=== PATIENT | male | born 1950 | race Hispanic/Latino ===

== ENCOUNTER 2016-07-23 10:16 | Outpatient (CLI) | payer MEDICARE, OTHER ==
[2016-07-23 10:57] LABS: #Eosinphils 0.3 thou/uL (0.0-0.7); #Lymphocytes 1.9 thou/uL (1.20-3.40); #Monocytes 0.6 thou/uL (0.11-0.59); #Neutrophils 4.7 thou/uL (1.40-6.50); %Basophils 0.6 % (0.0-1.0); %Eosinophils 3.6 % (0.0-10.0); %Monocytes 8.1 % (0.0-10.0); Hematocrit 36.6 % (42.0-52.0); Mean Platelet Volume 6.4 fL (7.4-10.4); Red Blood Cell (RBC) Count 4.14 mill/uL (4.70-6.10); White Blood Cell (WBC) Count 7.5 thou/uL (4.8-10.8)
[2016-07-23 11:10] LABS: ALT (SGPT) 35 U/L (0-55); AST (SGOT) 30 U/L (5-34); Alkaline Phosphatase 95 U/L (40-150); Anion Gap 15 mmol/L (10-20); BUN (Urea Nitrogen) 23 mg/dL (8.4-25.7); Bilirubin, Total 0.9 mg/dL (0.2-1.2); Calc. Creatinine Clearance 0 mL/min (70-130); Calcium 9.6 mg/dL (7.8-10.44); Carbon Dioxide 23 mmol/L (23-31); Chloride 106 mmol/L (98-107); Estimated GFR-MDRD 66; Globulin 4.2 g/dL (2.4-3.5); LDL Cholesterol, Calculated 88 mg/dL; Protein, Total 8.3 g/dL (5.8-8.1)
[2016-07-23 19:01] LABS: Microalbumin Urine 10.6 mg/dL (0.5-50.0)
== END 2016-07-23 10:17 | disposition home or self-care (01) ==
LOC: HPCALD 10:16
PROVIDERS: ATTEND Family Medicine
DX: E78.00 Pure hypercholesterolemia, unspecified (principal); E11.9 Type 2 diabetes mellitus without complications
CPT/HCPCS: 36415; 80053; 80061; 82043; 84443; 85025

== ENCOUNTER 2016-10-28 15:15 | Outpatient (CLI) | payer MEDICARE, OTHER ==
--- NOTE | 2016-10-28 20:59 | RAD ---
CHEST TWO VIEWS: Date: 10-28-16 Comparison: 05-21-13 FINDINGS: The heart is upper limits of normal in size but unchanged over the interval. There is no vascular co ngestion or evidence of significant pleural effusion. The right lung is clear. There is some questio nable haziness in the left costophrenic angle, but I believe this is due to overlapping structures. This was also the asymmetric side. Some calcified granulomas are suggested throughout the lungs. Mil d degenerative changes are seen in the mid to lower thoracic spine. The trachea is midline. IMPRESSION: No definite acute finding. POS: HOME
== END 2016-10-28 15:16 | disposition home or self-care (01) ==
LOC: BUREKG 15:15
PROVIDERS: ATTEND Family Medicine
DX: M54.6 Pain in thoracic spine (principal)
CPT/HCPCS: 71020; 93005; 93010

== ENCOUNTER 2016-11-03 14:13 | Emergency (ER) | payer MEDICARE, OTHER ==
[2016-11-03] MEDS ORDERED: Ibuprofen 800 MG TAB ONE (14:30)
[2016-11-03] MEDS ORDERED: HYDROcodone/Acetaminophen 10/325 mg Tablet ONE (14:30)
--- NOTE | 2016-11-03 15:43 | CT ---
CT CERVICAL SPINE WITHOUT CONTRAST: Date: 11/03/[address] of the cervical spine was done emergently for evaluation of neck and shoulder pain. Axial slices were acquired, then coronal and sagittal reconstructions were done. FINDINGS: The spinal alignment is grossly normal. Slight disc space narrowing is seen at C5-C6 and C6-C7. The C1 to dens distance is normal and the soft tissues are normal in thickness. No fracture or acute bon y changes was seen at any level. Findings by level follow: C1-C2: No acute findings. C2-C3: No acute findings. C3-C4: Moderate right foraminal narrowing and moderate to severe left foraminal narrowing. Facet arthritis prominent on the left. C4-C5: Moderate bilateral foraminal narrowing and some mild facet arthritis bilaterally. C5-C6: Prominent disc osteophyte complex posteriorly that narrows the AP diameter of the spinal canal to 8- 9 mm. Additionally, there is moderate to severe bilateral foraminal narrowing, perhaps a little more so on the right than the left. C6-C7: There is probably some mild to moderate right foraminal narrowing and minimal left foraminal narrowi ng. The angulation of the scan makes it a little more difficult to see here. C7-T1: Facet arthritis is present. There is no spinal stenosis. The foramina are difficult to evaluate prop erly. The lung apices were clear. The soft tissues of the neck were unremarkable. IMPRESSION: Diffuse degenerative changes throughout with bilateral foraminal narrowing being prominent at C3 and below. Central canal stenosis is present at C5-C6 due to a disc osteophyte complex with an AP diame ter narrowed to about 8-9 mm. POS: HOME
== END 2016-11-03 15:15 | disposition home or self-care (01) ==
LOC: BURERS 14:13
DX: M50.322 Other cervical disc degeneration at C5-C6 level (principal); M50.323 Other cervical disc degeneration at C6-C7 level; E11.9 Type 2 diabetes mellitus without complications; Z79.84 Long term (current) use of oral hypoglycemic drugs; Z79.899 Other long term (current) drug therapy
CPT/HCPCS: 72125

== ENCOUNTER 2016-11-11 16:33 | Outpatient (CLI) | payer MEDICARE, OTHER ==
[2016-11-11 17:14] LABS: Anion Gap 21 mmol/L (10-20); BUN (Urea Nitrogen) 37 mg/dL (8.4-25.7); Calc. Creatinine Clearance 0 mL/min (70-130); Calcium 9.8 mg/dL (7.8-10.44); Carbon Dioxide 21 mmol/L (23-31); Chloride 96 mmol/L (98-107); Estimated GFR-MDRD 31; Glucose 210 mg/dL (80-115); Potassium 4.5 mmol/L (3.5-5.1); Sodium 133 mmol/L (136-145); Uric Acid 6.9 mg/dL (3.5-7.2)
== END 2016-11-11 16:34 | disposition home or self-care (01) ==
LOC: HPCALD 16:33
PROVIDERS: ATTEND Family Medicine
DX: N17.9 Acute kidney failure, unspecified (principal); M25.40 Effusion, unspecified joint
CPT/HCPCS: 36415; 80048; 84550

== ENCOUNTER 2016-11-13 12:39 | Outpatient (CLI) | payer MEDICARE, OTHER ==
[2016-11-13 17:49] LABS: CRP (Inflammatory) 25.73 mg/dL (= or < 0.5)
[2016-11-13 17:59] LABS: Creatinine, Urine 137.56 mg/dL (63-166)
[2016-11-13 18:15] LABS: Microalbumin Urine 47.8 mg/dL (0.5-50.0); Microalbumin/Creat Ratio 347.5 mg/g (Less than 30)
[2016-11-15 07:28] LABS: Antinuclear AB Negative (Negative)
== END 2016-11-13 12:40 | disposition home or self-care (01) ==
LOC: BURLAB 12:39
PROVIDERS: ATTEND Family Medicine
DX: D64.9 Anemia, unspecified (principal); N17.9 Acute kidney failure, unspecified; M25.50 Pain in unspecified joint
CPT/HCPCS: 36415; 82043; 82550; 83540; 83550; 84165; 84166; 85652; 86038; 86140; 86430

== ENCOUNTER 2016-11-18 17:15 | Outpatient (CLI) | payer MEDICARE, OTHER ==
[2016-11-18 18:26] LABS: Anion Gap 18 mmol/L (10-20); BUN (Urea Nitrogen) 30 mg/dL (8.4-25.7); Calc. Creatinine Clearance 0 mL/min (70-130); Calcium 8.8 mg/dL (7.8-10.44); Carbon Dioxide 21 mmol/L (23-31); Chloride 100 mmol/L (98-107); Estimated GFR-MDRD 71; Glucose 365 mg/dL (80-115); Potassium 5.2 mmol/L (3.5-5.1); Sodium 134 mmol/L (136-145)
== END 2016-11-18 17:16 | disposition home or self-care (01) ==
LOC: HPCALD 17:15
PROVIDERS: ATTEND Family Medicine
DX: N17.9 Acute kidney failure, unspecified (principal)
CPT/HCPCS: 36415; 80048

== ENCOUNTER 2016-11-27 09:46 | Outpatient (CLI) | payer MEDICARE, OTHER ==
[2016-11-27 10:12] LABS: Anion Gap 15 mmol/L (10-20); BUN (Urea Nitrogen) 18 mg/dL (8.4-25.7); Calc. Creatinine Clearance 0 mL/min (70-130); Calcium 9.7 mg/dL (7.8-10.44); Carbon Dioxide 25 mmol/L (23-31); Chloride 104 mmol/L (98-107); Estimated GFR-MDRD 82; Glucose 101 mg/dL (80-115); Sodium 140 mmol/L (136-145)
== END 2016-11-27 09:47 | disposition home or self-care (01) ==
LOC: HPCALD 09:46
PROVIDERS: ATTEND Family Medicine
DX: N17.9 Acute kidney failure, unspecified (principal)
CPT/HCPCS: 36415; 80048

== ENCOUNTER 2016-12-16 10:04 | Outpatient (CLI) | payer MEDICARE, OTHER ==
[2016-12-16 10:48] LABS: #Basophils 0.1 thou/uL (0.0-0.2); #Eosinphils 0.1 thou/uL (0.0-0.7); #Monocytes 0.5 thou/uL (0.11-0.59); #Neutrophils 6.1 thou/uL (1.40-6.50); %Basophils 1.2 % (0.0-1.0); %Eosinophils 0.9 % (0.0-10.0); %Lymphocytes 30.4 % (21.0-51.0); %Monocytes 5.4 % (0.0-10.0); %Neutrophils 62.1 % (42.0-75.0); Hemoglobin 11.4 g/dL (14.0-18.0); Mean Corpuscular HGB CONC 34.6 g/dL (32.0-36.0); Mean Corpuscular Volume 89.6 fl (80.0-94.0); Mean Platelet Volume 5.8 fL (7.4-10.4); Platelet Count 349 thou/uL (130-400); RBC Distribution Width 14.3 % (11.5-14.5); Red Blood Cell (RBC) Count 3.67 mill/uL (4.70-6.10); White Blood Cell (WBC) Count 9.8 thou/uL (4.8-10.8)
== END 2016-12-16 10:05 | disposition home or self-care (01) ==
LOC: BURLAB 10:04
PROVIDERS: ATTEND Internal Medicine Rheumatology
DX: M35.3 Polymyalgia rheumatica (principal)
CPT/HCPCS: 36415; 85025; 85652; 86140

== ENCOUNTER 2016-12-19 11:50 | Outpatient (CLI) | payer MEDICARE, OTHER ==
[2016-12-19 12:31] LABS: #Basophils 0.1 thou/uL (0.0-0.2); #Eosinphils 0.1 thou/uL (0.0-0.7); #Lymphocytes 1.8 thou/uL (1.20-3.40); #Monocytes 0.7 thou/uL (0.11-0.59); #Neutrophils 7.3 thou/uL (1.40-6.50); %Basophils 0.6 % (0.0-1.0); %Eosinophils 0.9 % (0.0-10.0); %Monocytes 7.1 % (0.0-10.0); %Neutrophils 73.4 % (42.0-75.0); Hemoglobin 12.2 g/dL (14.0-18.0); Mean Corpuscular HGB CONC 34.3 g/dL (32.0-36.0); Mean Corpuscular Hemoglobin 30.6 pg (27.0-31.0); Mean Corpuscular Volume 89.3 fl (80.0-94.0); Mean Platelet Volume 5.9 fL (7.4-10.4); Platelet Count 395 thou/uL (130-400); RBC Distribution Width 14.3 % (11.5-14.5); Red Blood Cell (RBC) Count 3.99 mill/uL (4.70-6.10)
[2016-12-19 12:46] LABS: Anion Gap 16 mmol/L (10-20); BUN (Urea Nitrogen) 23 mg/dL (8.4-25.7); Calc. Creatinine Clearance 0 mL/min (70-130); Calcium 10.2 mg/dL (7.8-10.44); Carbon Dioxide 25 mmol/L (23-31); Chloride 104 mmol/L (98-107); Estimated GFR-MDRD 70; Glucose 130 mg/dL (80-115); Potassium 4.9 mmol/L (3.5-5.1); Sodium 140 mmol/L (136-145)
== END 2016-12-19 11:51 | disposition home or self-care (01) ==
LOC: HPCALD 11:50
PROVIDERS: ATTEND Family Medicine
DX: D50.9 Iron deficiency anemia, unspecified (principal); E11.9 Type 2 diabetes mellitus without complications
CPT/HCPCS: 36415; 80048; 85025

== ENCOUNTER 2017-01-15 11:08 | Outpatient (CLI) | payer MEDICARE, OTHER ==
[2017-01-15 11:33] LABS: #Eosinphils 0.1 thou/uL (0.0-0.7); #Lymphocytes 1.1 thou/uL (1.20-3.40); #Monocytes 0.5 thou/uL (0.11-0.59); #Neutrophils 6.9 thou/uL (1.40-6.50); %Basophils 0.5 % (0.0-1.0); %Eosinophils 1.1 % (0.0-10.0); %Lymphocytes 12.7 % (21.0-51.0); %Monocytes 5.6 % (0.0-10.0); %Neutrophils 80.1 % (42.0-75.0); Mean Corpuscular HGB CONC 34.1 g/dL (32.0-36.0); Mean Corpuscular Hemoglobin 31.8 pg (27.0-31.0); Mean Corpuscular Volume 93.2 fl (80.0-94.0); Mean Platelet Volume 6.2 fL (7.4-10.4); Platelet Count 304 thou/uL (130-400); RBC Distribution Width 13.8 % (11.5-14.5); Red Blood Cell (RBC) Count 3.77 mill/uL (4.70-6.10); White Blood Cell (WBC) Count 8.7 thou/uL (4.8-10.8)
[2017-01-15 11:45] LABS: ALT (SGPT) 37 U/L (8-55); AST (SGOT) 23 U/L (5-34); Alkaline Phosphatase 84 U/L (40-150); Anion Gap 15 mmol/L (10-20); BUN (Urea Nitrogen) 18 mg/dL (8.4-25.7); Bilirubin, Total 0.9 mg/dL (0.2-1.2); Calc. Creatinine Clearance 0 mL/min (70-130); Calcium 9.5 mg/dL (7.8-10.44); Carbon Dioxide 25 mmol/L (23-31); Chloride 105 mmol/L (98-107); Estimated GFR-MDRD 71; Globulin 3.4 g/dL (2.4-3.5); Glucose 114 mg/dL (80-115); Potassium 4.6 mmol/L (3.5-5.1); Protein, Total 7.4 g/dL (5.8-8.1); Sodium 140 mmol/L (136-145)
[2017-01-15 18:11] LABS: CRP (Inflammatory) Less than 0.50 mg/dL (= or < 0.5)
== END 2017-01-15 11:09 | disposition home or self-care (01) ==
LOC: BURLAB 11:08
PROVIDERS: ATTEND Internal Medicine Rheumatology
DX: M35.3 Polymyalgia rheumatica (principal)
CPT/HCPCS: 36415; 80053; 85025; 85652; 86140

== ENCOUNTER 2017-02-11 09:08 | Outpatient (CLI) | payer MEDICARE, OTHER ==
[2017-02-11 09:39] LABS: ALT (SGPT) 31 U/L (8-55); AST (SGOT) 16 U/L (5-34); Albumin 3.7 g/dL (3.4-4.8); Alkaline Phosphatase 82 U/L (40-150); Anion Gap 13 mmol/L (10-20); BUN (Urea Nitrogen) 26 mg/dL (8.4-25.7); Bilirubin, Total 0.6 mg/dL (0.2-1.2); Calc. Creatinine Clearance 0 mL/min (70-130); Calcium 9.6 mg/dL (7.8-10.44); Carbon Dioxide 26 mmol/L (23-31); Chloride 105 mmol/L (98-107); Estimated GFR-MDRD 64; Globulin 3.3 g/dL (2.4-3.5); Glucose 178 mg/dL (80-115); Sodium 140 mmol/L (136-145)
[2017-02-11 09:52] LABS: #Basophils 0.1 thou/uL (0.0-0.2); #Eosinphils 0.1 thou/uL (0.0-0.7); #Lymphocytes 2.1 thou/uL (1.20-3.40); #Monocytes 0.5 thou/uL (0.11-0.59); #Neutrophils 4.9 thou/uL (1.40-6.50); %Basophils 0.9 % (0.0-1.0); %Eosinophils 1.5 % (0.0-10.0); %Lymphocytes 27.5 % (21.0-51.0); %Monocytes 6.2 % (0.0-10.0); %Neutrophils 63.9 % (42.0-75.0); Hemoglobin 11.9 g/dL (14.0-18.0); Mean Corpuscular HGB CONC 34.3 g/dL (32.0-36.0); Mean Corpuscular Hemoglobin 32.1 pg (27.0-31.0); Mean Corpuscular Volume 93.6 fl (80.0-94.0); Mean Platelet Volume 6.2 fL (7.4-10.4); Platelet Count 258 thou/uL (130-400); RBC Distribution Width 13.8 % (11.5-14.5); White Blood Cell (WBC) Count 7.7 thou/uL (4.8-10.8)
[2017-02-11 17:48] LABS: CRP (Inflammatory) Less than 0.50 mg/dL (= or < 0.5)
== END 2017-02-11 09:09 | disposition home or self-care (01) ==
LOC: BURLAB 09:08
PROVIDERS: ATTEND Internal Medicine Rheumatology
DX: M35.3 Polymyalgia rheumatica (principal)
CPT/HCPCS: 36415; 80053; 85025; 85652; 86140

== ENCOUNTER 2017-10-19 18:12 | Emergency (ER) | payer MEDICARE, OTHER ==
[2017-10-19 18:45] LABS: Hemoglobin 11.3 g/dL (14.0-18.0); Mean Corpuscular HGB CONC 37.6 g/dL (32.0-36.0); Mean Corpuscular Hemoglobin 32.5 pg (27.0-31.0); Mean Corpuscular Volume 86.5 fl (80.0-94.0); Mean Platelet Volume 6.1 fL (7.4-10.4); Platelet Count 275 thou/uL (130-400); RBC Distribution Width 12.5 % (11.5-14.5); Red Blood Cell (RBC) Count 3.49 mill/uL (4.70-6.10); White Blood Cell (WBC) Count 6.9 thou/uL (4.8-10.8)
[2017-10-19 18:54] LABS: ALT (SGPT) 60 U/L (8-55); AST (SGOT) 31 U/L (5-34); Albumin 4.2 g/dL (3.4-4.8); Alkaline Phosphatase 93 U/L (40-150); Anion Gap 17 mmol/L (10-20); BUN (Urea Nitrogen) 34 mg/dL (8.4-25.7); Bilirubin, Total 0.9 mg/dL (0.2-1.2); Calc. Creatinine Clearance 0 mL/min (70-130); Calcium 9.7 mg/dL (7.8-10.44); Carbon Dioxide 22 mmol/L (23-31); Chloride 106 mmol/L (98-107); Estimated GFR-MDRD 46; Globulin 3.4 g/dL (2.4-3.5); Glucose 163 mg/dL (80-115); Potassium 4.7 mmol/L (3.5-5.1); Protein, Total 7.6 g/dL (5.8-8.1); Sodium 140 mmol/L (136-145)
[2017-10-19 18:55] LABS: CKMB 0.8 ng/mL (0-6.6); Troponin I 0.022 ng/mL (< 0.028)
[2017-10-19 18:56] LABS: #Eosinphils 0.2 thou/uL (0.0-0.7); #Lymphocytes 1.1 thou/uL (1.20-3.40); #Monocytes 0.4 thou/uL (0.11-0.59); #Neutrophils 5.2 thou/uL (1.40-6.50); %Basophils 0.5 % (0.0-1.0); %Eosinophils 2.5 % (0.0-10.0); %Lymphocytes 15.9 % (21.0-51.0); %Monocytes 5.4 % (0.0-10.0); %Neutrophils 75.6 % (42.0-75.0); PLT Morphology Comment Appears Adequate; RBC Morphology Normal
[2017-10-19 18:57] LABS: Manual Diff?? NO
[2017-10-19 18:58] LABS: MDiff Complete? YES
--- NOTE | 2017-10-19 23:08 | RAD ---
PORTABLE CHEST: An AP portable film at 1823 is compared to a 11-04-[address] [facility]. FINDINGS: The heart is normal in size and the lungs are clear. No infiltrate or effusion was seen. There if no vascular congestion or edema. The trachea is midline. IMPRESSION: No acute thoracic finding. POS: HOME
== END 2017-10-19 20:18 | disposition home or self-care (01) ==
LOC: BURERS 18:12
DX: E86.0 Dehydration (principal); E78.5 Hyperlipidemia, unspecified; E11.9 Type 2 diabetes mellitus without complications; I10 Essential (primary) hypertension; Z79.84 Long term (current) use of oral hypoglycemic drugs; Z79.899 Other long term (current) drug therapy
CPT/HCPCS: 71045; 80053; 82553; 83880; 84484; 85025; 93005; 96360

== ENCOUNTER 2020-04-09 16:31 | Emergency (ER) | payer MEDICARE, OTHER ==
[2020-04-09 17:05] LABS: #Basophils 0.1 thou/uL (0.0-0.2); #Eosinphils 0.2 thou/uL (0.0-0.7); #Lymphocytes 1.3 thou/uL (1.20-3.40); #Monocytes 0.7 thou/uL (0.11-0.59); #Neutrophils 7.3 thou/uL (1.40-6.50); %Basophils 0.9 % (0.0-1.0); %Eosinophils 2.1 % (0.0-10.0); %Lymphocytes 13.4 % (21.0-51.0); %Monocytes 7.7 % (0.0-10.0); %Neutrophils 75.9 % (42.0-75.0); Hemoglobin 12.1 g/dL (14.0-18.0); Mean Corpuscular Hemoglobin 29.6 pg (27.0-31.0); Mean Corpuscular Volume 92.6 fL (78.0-98.0); Mean Platelet Volume 7.5 fL (7.4-10.4); Platelet Count 348 thou/uL (130-400); RBC Distribution Width 12.6 % (11.5-14.5); Red Blood Cell (RBC) Count 4.09 mill/uL (4.70-6.10); White Blood Cell (WBC) Count 9.6 thou/uL (4.8-10.8)
[2020-04-09] MEDS ORDERED: cefTRIAXone\\ROCEPHIN 1 GM VIAL ONE (17:07)
[2020-04-09] MEDS ORDERED: Sodium Chloride 0.9% 100 ML ONE (17:07)
[2020-04-09 17:18] LABS: ALT (SGPT) 13 U/L (8-55); AST (SGOT) 10 U/L (5-34); Alkaline Phosphatase 128 U/L (40-110); Anion Gap 18 mmol/L (10-20); BUN (Urea Nitrogen) 14 mg/dL (8.4-25.7); Bilirubin, Total 0.6 mg/dL (0.2-1.2); Calc. Creatinine Clearance 0 mL/min (70-130); Calcium 9.3 mg/dL (7.8-10.44); Carbon Dioxide 23 mmol/L (23-31); Chloride 97 mmol/L (98-107); Estimated GFR-MDRD 50; Globulin 4.5 g/dL (2.4-3.5); Glucose 446 mg/dL (80-115); Potassium 4.1 mmol/L (3.5-5.1); Protein, Total 8.5 g/dL (5.8-8.1); Sodium 134 mmol/L (136-145)
[2020-04-09] MEDS ORDERED: Insulin Regular 300 UNITS/3 ML VIAL ONE (17:31)
[2020-04-09 17:38] LABS: CKMB 0.6 ng/mL (0-6.6)
--- NOTE | 2020-04-09 17:46 | RAD ---
LEFT GREAT TOE THREE VIEWS: Date: 04-09-2020 FINDINGS: No acute fracture or area of bony destruction was seen. The great toe is flexed at the IP joint and t he distal phalanx seems subluxed slightly towards the planar aspect of the foot. It would not surpris e me if this were longstanding. IMPRESSION: No acute bony finding. POS: HOME
== END 2020-04-09 19:10 | disposition short-term general hospital (02) ==
LOC: BURERS 16:31
DX: E11.621 Type 2 diabetes mellitus with foot ulcer (principal); L97.529 Non-pressure chronic ulcer of other part of left foot with unspecified severity; L08.9 Local infection of the skin and subcutaneous tissue, unspecified; E11.65 Type 2 diabetes mellitus with hyperglycemia; B19.20 Unspecified viral hepatitis C without hepatic coma; E78.5 Hyperlipidemia, unspecified; I10 Essential (primary) hypertension; E78.00 Pure hypercholesterolemia, unspecified; Z79.899 Other long term (current) drug therapy; Z79.84 Long term (current) use of oral hypoglycemic drugs
CPT/HCPCS: 36415; 36416; 80053; 82553; 83605; 83880; 84484; 85025; 87040; 93005; 96365; 96375; J0696; J1815; J3490

== ENCOUNTER 2020-05-06 13:06 | Emergency (ER) | payer MEDICARE, OTHER | END 2020-05-06 14:14 | disposition home or self-care (01) | LOC: BURERS 13:06 | DX: I80.9 Phlebitis and thrombophlebitis of unspecified site (principal); E11.9 Type 2 diabetes mellitus without complications; B19.20 Unspecified viral hepatitis C without hepatic coma; E78.5 Hyperlipidemia, unspecified; I10 Essential (primary) hypertension; Z79.899 Other long term (current) drug therapy; Z79.84 Long term (current) use of oral hypoglycemic drugs | CPT/HCPCS: 99283 ==

== ENCOUNTER 2020-07-18 16:36 | Outpatient (CLI) | payer MEDICARE, OTHER ==
--- NOTE | 2020-07-18 20:20 | RAD ---
CHEST TWO VIEWS: 07/18/20 Comparison is made with the prior study of 10/19/17. There is a small infiltrate in the left lower lobe suggesting pneumonia. The right hilum is a little more prominent than usual. I cannot exclude some adenopathy here or enlargement of the right pulmonar y artery. The upper lobes are clear. There are no effusions. The heart size is normal. IMPRESSION: Left lower lobe infiltrate and right hilar prominence. An infectious cause is presumed. Following vanessa atment, however, it will be important to get a follow-up study to show resolution of all of these fin dings. If there is no significant resolution, then a CT may be needed to look for any additional path ology. Code T POS: HOME
== END 2020-07-18 16:37 | disposition home or self-care (01) ==
LOC: BURRAD 16:36
PROVIDERS: ATTEND Family Medicine
DX: R07.81 Pleurodynia (principal); R91.8 Other nonspecific abnormal finding of lung field
CPT/HCPCS: 71046

== ENCOUNTER 2020-11-10 17:18 | Inpatient (IN) | payer MEDICARE, OTHER ==
[2020-11-10 18:48] VITALS: BMI 24.3
[2020-11-10] MEDS ORDERED: Benzonatate 100 MG CAP PO PRN (21:39)
[2020-11-10] MEDS ORDERED: metroNIDAZOLE 250 MG TAB PO SCH (22:00)
[2020-11-10] MEDS ORDERED: Linezolid 600 MG TAB PO SCH (22:00)
[2020-11-10] MEDS ORDERED: Cyclobenzaprine 10 MG TAB PO SCH (22:30)
[2020-11-10] MEDS ORDERED: Atorvastatin Calcium 40 MG TAB PO SCH (22:30)
[2020-11-10] MEDS ORDERED: Tamsulosin HCl 0.4 MG CAP PO SCH (22:30)
[2020-11-10] MEDS ORDERED: Lantus 1000 UNITS/10 ML VIAL SC SCH (23:00)
[2020-11-11 05:44] LABS: ALT (SGPT) 49 U/L (8-55); AST (SGOT) 23 U/L (5-34); Albumin 2.9 g/dL (3.4-4.8); Alkaline Phosphatase 112 U/L (40-110); Anion Gap 13 mmol/L (10-20); BUN (Urea Nitrogen) 16 mg/dL (8.4-25.7); Bilirubin, Total 0.3 mg/dL (0.2-1.2); Calc. Creatinine Clearance 89 mL/min (70-130); Calcium 8.6 mg/dL (7.8-10.44); Carbon Dioxide 24 mmol/L (23-31); Chloride 105 mmol/L (98-107); Globulin 3.9 g/dL (2.4-3.5); Glucose 176 mg/dL (80-115); Potassium 4.1 mmol/L (3.5-5.1); Protein, Total 6.8 g/dL (5.8-8.1); Sodium 138 mmol/L (136-145)
[2020-11-11 05:52] LABS: #Eosinphils 0.1 thou/uL (0.0-0.7); #Lymphocytes 1.6 thou/uL (1.20-3.40); #Monocytes 0.7 thou/uL (0.11-0.59); #Neutrophils 6.9 thou/uL (1.40-6.50); %Basophils 0.4 % (0.0-1.0); %Eosinophils 0.7 % (0.0-10.0); %Lymphocytes 16.9 % (21.0-51.0); %Monocytes 7.5 % (0.0-10.0); %Neutrophils 74.6 % (42.0-75.0); Hemoglobin 11.6 g/dL (14.0-18.0); Mean Corpuscular HGB CONC 33.3 g/dL (32.0-36.0); Mean Corpuscular Hemoglobin 29.1 pg (27.0-31.0); Mean Corpuscular Volume 87.4 fL (78.0-98.0); Platelet Count 430 thou/uL (130-400); RBC Distribution Width 12.3 % (11.5-14.5); Red Blood Cell (RBC) Count 4.01 mill/uL (4.70-6.10); White Blood Cell (WBC) Count 9.2 thou/uL (4.8-10.8)
[2020-11-11] MEDS ORDERED: MISOPROSTOL PO SCH (09:00)
[2020-11-11] MEDS ORDERED: Metoprolol Tartrate 100 MG TAB PO SCH (09:00)
[2020-11-11] MEDS ORDERED: DICLOFENAC SODIUM PO SCH (09:00)
[2020-11-11] MEDS ORDERED: Metoprolol Tartrate 25 MG TAB PO SCH (09:15)
[2020-11-11] MEDS: metFORMIN 500 MG TAB PO SCH ×2 (09:35→16:11)
[2020-11-11] MEDS: Losartan Potassium 50 MG TAB PO SCH (09:36)
[2020-11-11] MEDS: metroNIDAZOLE 250 MG TAB PO SCH ×2 (09:36→21:00)
[2020-11-11] MEDS: Gabapentin 300 MG CAP PO SCH ×2 (09:36→21:01)
[2020-11-11] MEDS: Magnesium Oxide 400 MG TAB PO SCH (09:37)
[2020-11-11] MEDS: Amlodipine 5 MG TAB PO SCH (09:37)
[2020-11-11] MEDS: Linezolid 600 MG TAB PO SCH ×2 (09:38→21:01)
[2020-11-11] MEDS: HumaLOG 300 UNITS/3 ML VIAL SC SCH ×3 (09:39→17:48)
[2020-11-11] MEDS: Cyclobenzaprine 10 MG TAB PO SCH ×3 (09:39→21:01)
[2020-11-11] MEDS: Metoprolol Tartrate 25 MG TAB PO SCH (21:00)
[2020-11-11] MEDS: Atorvastatin Calcium 40 MG TAB PO SCH (21:01)
[2020-11-11] MEDS: Lantus 1000 UNITS/10 ML VIAL SC SCH (21:02)
[2020-11-11] MEDS: Tamsulosin HCl 0.4 MG CAP PO SCH (21:02)
[2020-11-12] MEDS: Magnesium Oxide 400 MG TAB PO SCH (09:12)
[2020-11-12] MEDS: metFORMIN 500 MG TAB PO SCH ×2 (09:12→16:36)
[2020-11-12] MEDS: Linezolid 600 MG TAB PO SCH ×2 (09:13→20:33)
[2020-11-12] MEDS: metroNIDAZOLE 250 MG TAB PO SCH ×2 (09:13→20:32)
[2020-11-12] MEDS: Gabapentin 300 MG CAP PO SCH ×2 (09:14→20:33)
[2020-11-12] MEDS: HumaLOG 300 UNITS/3 ML VIAL SC SCH ×3 (13:18→18:04)
[2020-11-12] MEDS: Amlodipine 5 MG TAB PO SCH (13:26)
[2020-11-12] MEDS: Losartan Potassium 50 MG TAB PO SCH (13:27)
[2020-11-12] MEDS: Cyclobenzaprine 10 MG TAB PO SCH ×3 (13:27→20:33)
[2020-11-12] MEDS: Metoprolol Tartrate 25 MG TAB PO SCH ×2 (13:34→21:10)
[2020-11-12] MEDS: Atorvastatin Calcium 40 MG TAB PO SCH (20:33)
[2020-11-12] MEDS: Tamsulosin HCl 0.4 MG CAP PO SCH (21:09)
[2020-11-12] MEDS: Lantus 1000 UNITS/10 ML VIAL SC SCH (21:10)
[2020-11-13 06:03] LABS: ALT (SGPT) 33 U/L (8-55); AST (SGOT) 14 U/L (5-34); Albumin 2.9 g/dL (3.4-4.8); Alkaline Phosphatase 92 U/L (40-110); Anion Gap 13 mmol/L (10-20); BUN (Urea Nitrogen) 17 mg/dL (8.4-25.7); Bilirubin, Total 0.4 mg/dL (0.2-1.2); CRP (Inflammatory) Less than 0.50 mg/dL (= or < 0.5); Calc. Creatinine Clearance 79 mL/min (70-130); Calcium 8.6 mg/dL (7.8-10.44); Carbon Dioxide 25 mmol/L (23-31); Chloride 104 mmol/L (98-107); Globulin 3.8 g/dL (2.4-3.5); Glucose 88 mg/dL (80-115); Potassium 4.8 mmol/L (3.5-5.1); Protein, Total 6.7 g/dL (5.8-8.1); Sodium 137 mmol/L (136-145)
[2020-11-13 06:09] LABS: #Eosinphils 0.1 thou/uL (0.0-0.7); #Lymphocytes 1.2 thou/uL (1.20-3.40); #Monocytes 0.7 thou/uL (0.11-0.59); %Basophils 0.3 % (0.0-1.0); %Eosinophils 1.1 % (0.0-10.0); %Lymphocytes 11.8 % (21.0-51.0); %Monocytes 7.3 % (0.0-10.0); %Neutrophils 79.5 % (42.0-75.0); Hemoglobin 11.6 g/dL (14.0-18.0); Mean Corpuscular HGB CONC 33.7 g/dL (32.0-36.0); Mean Corpuscular Hemoglobin 29.6 pg (27.0-31.0); Mean Corpuscular Volume 87.9 fL (78.0-98.0); Mean Platelet Volume 5.9 fL (7.4-10.4); Platelet Count 319 thou/uL (130-400); RBC Distribution Width 13.1 % (11.5-14.5); Red Blood Cell (RBC) Count 3.93 mill/uL (4.70-6.10); White Blood Cell (WBC) Count 10.1 thou/uL (4.8-10.8)
[2020-11-13] MEDS: Gabapentin 300 MG CAP PO SCH ×2 (08:00→21:32)
[2020-11-13] MEDS: Cyclobenzaprine 10 MG TAB PO SCH ×3 (08:01→21:33)
[2020-11-13] MEDS: metFORMIN 500 MG TAB PO SCH ×2 (08:01→18:02)
[2020-11-13] MEDS: Linezolid 600 MG TAB PO SCH ×2 (08:02→18:03)
[2020-11-13] MEDS: metroNIDAZOLE 250 MG TAB PO SCH ×2 (08:02→18:02)
[2020-11-13] MEDS: Losartan Potassium 50 MG TAB PO SCH (08:02)
[2020-11-13] MEDS: Amlodipine 5 MG TAB PO SCH (08:02)
[2020-11-13] MEDS: Magnesium Oxide 400 MG TAB PO SCH (08:03)
[2020-11-13] MEDS: HumaLOG 300 UNITS/3 ML VIAL SC SCH ×3 (08:04→18:03)
[2020-11-13] MEDS: Metoprolol Tartrate 25 MG TAB PO SCH ×2 (09:29→21:31)
[2020-11-13] MEDS: Ondansetron ODT 4 MG TAB PO PRN (10:42)
[2020-11-13] MEDS: Tamsulosin HCl 0.4 MG CAP PO SCH (21:31)
[2020-11-13] MEDS: Atorvastatin Calcium 40 MG TAB PO SCH (21:31)
[2020-11-13] MEDS: Lantus 1000 UNITS/10 ML VIAL SC SCH (21:34)
[2020-11-14] MEDS: metroNIDAZOLE 250 MG TAB PO SCH ×2 (09:44→18:08)
[2020-11-14] MEDS: Magnesium Oxide 400 MG TAB PO SCH (09:45)
[2020-11-14] MEDS: Metoprolol Tartrate 25 MG TAB PO SCH (09:45)
[2020-11-14] MEDS: Cyclobenzaprine 10 MG TAB PO SCH ×3 (09:45→20:52)
[2020-11-14] MEDS: Linezolid 600 MG TAB PO SCH ×2 (09:46→18:09)
[2020-11-14] MEDS: Gabapentin 300 MG CAP PO SCH ×2 (09:46→20:51)
[2020-11-14] MEDS: Amlodipine 5 MG TAB PO SCH (09:47)
[2020-11-14] MEDS: metFORMIN 500 MG TAB PO SCH ×2 (09:47→18:08)
[2020-11-14] MEDS: Losartan Potassium 50 MG TAB PO SCH (09:47)
[2020-11-14] MEDS: HumaLOG 300 UNITS/3 ML VIAL SC SCH ×2 (09:50→12:38)
[2020-11-14] MEDS ORDERED: HumaLOG 300 UNITS/3 ML VIAL SC PRN (12:04)
[2020-11-14] MEDS ORDERED: Dextrose 5% in Water 1,000 ML IV PRN (12:04)
[2020-11-14] MEDS ORDERED: Dextrose 50% Abboject 50 ML SYRINGE SLOW IVP PRN (12:04)
[2020-11-14] MEDS: Ondansetron ODT 4 MG TAB PO PRN (12:33)
[2020-11-14] MEDS: Lantus 1000 UNITS/10 ML VIAL SC SCH (20:50)
[2020-11-14] MEDS: Tamsulosin HCl 0.4 MG CAP PO SCH (20:51)
[2020-11-14] MEDS: Atorvastatin Calcium 40 MG TAB PO SCH (20:52)
[2020-11-14] MEDS: Metoprolol Tartrate 50 MG TAB PO SCH (20:53)
[2020-11-15] MEDS: Magnesium Oxide 400 MG TAB PO SCH (08:40)
[2020-11-15] MEDS: Gabapentin 300 MG CAP PO SCH ×2 (08:40→20:57)
[2020-11-15] MEDS: Cyclobenzaprine 10 MG TAB PO SCH ×3 (08:41→20:57)
[2020-11-15] MEDS: metroNIDAZOLE 250 MG TAB PO SCH ×2 (08:41→16:58)
[2020-11-15] MEDS: metFORMIN 500 MG TAB PO SCH ×2 (08:41→16:57)
[2020-11-15] MEDS: Linezolid 600 MG TAB PO SCH ×2 (08:42→16:58)
[2020-11-15] MEDS: Metoprolol Tartrate 50 MG TAB PO SCH ×2 (08:42→20:57)
[2020-11-15] MEDS: Losartan Potassium 50 MG TAB PO SCH (08:42)
[2020-11-15] MEDS: Amlodipine 5 MG TAB PO SCH (08:43)
[2020-11-15] MEDS: Lantus 1000 UNITS/10 ML VIAL SC SCH (20:56)
[2020-11-15] MEDS: Tamsulosin HCl 0.4 MG CAP PO SCH (20:57)
[2020-11-15] MEDS: Atorvastatin Calcium 40 MG TAB PO SCH (20:58)
[2020-11-16] MEDS: Losartan Potassium 50 MG TAB PO SCH (08:58)
[2020-11-16] MEDS: metFORMIN 500 MG TAB PO SCH ×2 (08:58→16:15)
[2020-11-16] MEDS: metroNIDAZOLE 250 MG TAB PO SCH ×2 (08:58→16:15)
[2020-11-16] MEDS: Metoprolol Tartrate 50 MG TAB PO SCH ×2 (09:02→20:31)
[2020-11-16] MEDS: Cyclobenzaprine 10 MG TAB PO SCH ×3 (09:03→20:29)
[2020-11-16] MEDS: Magnesium Oxide 400 MG TAB PO SCH (09:03)
[2020-11-16] MEDS: Linezolid 600 MG TAB PO SCH ×2 (09:03→16:15)
[2020-11-16] MEDS: Gabapentin 300 MG CAP PO SCH ×2 (09:03→20:30)
[2020-11-16] MEDS: Amlodipine 5 MG TAB PO SCH (09:04)
[2020-11-16] MEDS: Ondansetron ODT 4 MG TAB PO PRN (11:28)
[2020-11-16] MEDS: Lantus 1000 UNITS/10 ML VIAL SC SCH (20:28)
[2020-11-16] MEDS: Atorvastatin Calcium 40 MG TAB PO SCH (20:29)
[2020-11-16] MEDS: Tamsulosin HCl 0.4 MG CAP PO SCH (20:31)
[2020-11-17] MEDS: Amlodipine 5 MG TAB PO SCH (07:59)
[2020-11-17] MEDS: Metoprolol Tartrate 50 MG TAB PO SCH ×2 (08:00→20:27)
[2020-11-17] MEDS: Cyclobenzaprine 10 MG TAB PO SCH ×3 (08:00→20:27)
[2020-11-17] MEDS: Gabapentin 300 MG CAP PO SCH ×2 (08:00→20:28)
[2020-11-17] MEDS: metFORMIN 500 MG TAB PO SCH ×2 (08:01→16:32)
[2020-11-17] MEDS: Losartan Potassium 50 MG TAB PO SCH (08:01)
[2020-11-17] MEDS: Magnesium Oxide 400 MG TAB PO SCH (08:01)
[2020-11-17] MEDS: Linezolid 600 MG TAB PO SCH ×2 (08:02→16:31)
[2020-11-17] MEDS: metroNIDAZOLE 250 MG TAB PO SCH ×2 (08:02→16:31)
[2020-11-17] MEDS: Ondansetron ODT 4 MG TAB PO PRN (14:21)
[2020-11-17] MEDS: Lantus 1000 UNITS/10 ML VIAL SC SCH (20:27)
[2020-11-17] MEDS: Atorvastatin Calcium 40 MG TAB PO SCH (20:27)
[2020-11-17] MEDS: Tamsulosin HCl 0.4 MG CAP PO SCH (20:27)
[2020-11-18] MEDS: metFORMIN 500 MG TAB PO SCH ×2 (08:40→16:18)
[2020-11-18] MEDS: metroNIDAZOLE 250 MG TAB PO SCH ×2 (08:40→16:18)
[2020-11-18] MEDS: Metoprolol Tartrate 50 MG TAB PO SCH ×2 (08:41→20:57)
[2020-11-18] MEDS: Amlodipine 5 MG TAB PO SCH (08:41)
[2020-11-18] MEDS: Magnesium Oxide 400 MG TAB PO SCH (08:41)
[2020-11-18] MEDS: Linezolid 600 MG TAB PO SCH ×2 (08:41→16:18)
[2020-11-18] MEDS: Cyclobenzaprine 10 MG TAB PO SCH ×3 (08:41→20:56)
[2020-11-18] MEDS: Losartan Potassium 50 MG TAB PO SCH (08:41)
[2020-11-18] MEDS: Gabapentin 300 MG CAP PO SCH ×2 (08:42→20:57)
[2020-11-18] MEDS: Tamsulosin HCl 0.4 MG CAP PO SCH (20:56)
[2020-11-18] MEDS: Atorvastatin Calcium 40 MG TAB PO SCH (20:56)
[2020-11-18] MEDS: Lantus 1000 UNITS/10 ML VIAL SC SCH (20:58)
[2020-11-19] MEDS: metroNIDAZOLE 250 MG TAB PO SCH ×2 (08:54→16:23)
[2020-11-19] MEDS: Metoprolol Tartrate 50 MG TAB PO SCH ×2 (08:55→20:39)
[2020-11-19] MEDS: metFORMIN 500 MG TAB PO SCH ×2 (08:55→16:23)
[2020-11-19] MEDS: Gabapentin 300 MG CAP PO SCH ×2 (08:56→20:40)
[2020-11-19] MEDS: Losartan Potassium 50 MG TAB PO SCH (08:56)
[2020-11-19] MEDS: Linezolid 600 MG TAB PO SCH ×2 (08:57→16:24)
[2020-11-19] MEDS: Magnesium Oxide 400 MG TAB PO SCH (08:57)
[2020-11-19] MEDS: Cyclobenzaprine 10 MG TAB PO SCH ×3 (08:58→20:40)
[2020-11-19] MEDS: Amlodipine 5 MG TAB PO SCH (08:58)
[2020-11-19] MEDS: Ondansetron ODT 4 MG TAB PO PRN ×2 (12:20→20:38)
[2020-11-19] MEDS: Lantus 1000 UNITS/10 ML VIAL SC SCH (20:37)
[2020-11-19] MEDS: Atorvastatin Calcium 40 MG TAB PO SCH (20:39)
[2020-11-19] MEDS: Tamsulosin HCl 0.4 MG CAP PO SCH (20:40)
[2020-11-20 05:29] LABS: #Eosinphils 0.1 thou/uL (0.0-0.7); #Lymphocytes 1.9 thou/uL (1.20-3.40); #Monocytes 0.4 thou/uL (0.11-0.59); #Neutrophils 7.2 thou/uL (1.40-6.50); %Basophils 0.5 % (0.0-1.0); %Eosinophils 0.9 % (0.0-10.0); %Monocytes 3.9 % (0.0-10.0); %Neutrophils 74.7 % (42.0-75.0); Mean Corpuscular HGB CONC 32.8 g/dL (32.0-36.0); Mean Corpuscular Hemoglobin 29.4 pg (27.0-31.0); Mean Corpuscular Volume 89.5 fL (78.0-98.0); Mean Platelet Volume 6.2 fL (7.4-10.4); Platelet Count 250 thou/uL (130-400); RBC Distribution Width 13.7 % (11.5-14.5); Red Blood Cell (RBC) Count 4.08 mill/uL (4.70-6.10); White Blood Cell (WBC) Count 9.6 thou/uL (4.8-10.8)
[2020-11-20 05:40] LABS: ALT (SGPT) 22 U/L (8-55); AST (SGOT) 14 U/L (5-34); Albumin 3.1 g/dL (3.4-4.8); Alkaline Phosphatase 75 U/L (40-110); Anion Gap 14 mmol/L (10-20); BUN (Urea Nitrogen) 23 mg/dL (8.4-25.7); Bilirubin, Total 0.5 mg/dL (0.2-1.2); CRP (Inflammatory) 0.62 mg/dL (= or < 0.5); Calc. Creatinine Clearance 69 mL/min (70-130); Calcium 8.8 mg/dL (7.8-10.44); Carbon Dioxide 24 mmol/L (23-31); Chloride 104 mmol/L (98-107); Globulin 3.6 g/dL (2.4-3.5); Glucose 91 mg/dL (80-115); Potassium 5.8 mmol/L (3.5-5.1); Protein, Total 6.7 g/dL (5.8-8.1); Sodium 136 mmol/L (136-145)
[2020-11-20] MEDS: metroNIDAZOLE 250 MG TAB PO SCH ×2 (08:01→16:23)
[2020-11-20] MEDS: metFORMIN 500 MG TAB PO SCH ×2 (08:01→16:23)
[2020-11-20] MEDS: Cyclobenzaprine 10 MG TAB PO SCH ×3 (08:01→20:55)
[2020-11-20] MEDS: Magnesium Oxide 400 MG TAB PO SCH (08:01)
[2020-11-20] MEDS: Linezolid 600 MG TAB PO SCH ×2 (08:02→16:24)
[2020-11-20] MEDS: Metoprolol Tartrate 50 MG TAB PO SCH ×2 (08:02→20:55)
[2020-11-20] MEDS: Gabapentin 300 MG CAP PO SCH ×2 (08:02→20:55)
[2020-11-20] MEDS: Losartan Potassium 50 MG TAB PO SCH (08:02)
[2020-11-20] MEDS: Atorvastatin Calcium 40 MG TAB PO SCH (20:55)
[2020-11-20] MEDS: Tamsulosin HCl 0.4 MG CAP PO SCH (20:55)
[2020-11-20] MEDS: Lantus 1000 UNITS/10 ML VIAL SC SCH (21:01)
[2020-11-21] MEDS: metroNIDAZOLE 250 MG TAB PO SCH ×2 (07:56→16:25)
[2020-11-21] MEDS: Gabapentin 300 MG CAP PO SCH (07:56)
[2020-11-21] MEDS: Magnesium Oxide 400 MG TAB PO SCH (07:56)
[2020-11-21] MEDS: Linezolid 600 MG TAB PO SCH ×2 (07:57→16:25)
[2020-11-21] MEDS: Cyclobenzaprine 10 MG TAB PO SCH ×2 (07:57→15:45)
[2020-11-21] MEDS: metFORMIN 500 MG TAB PO SCH ×2 (07:59→16:25)
[2020-11-21] MEDS: Losartan Potassium 50 MG TAB PO SCH (07:59)
[2020-11-21] MEDS: Metoprolol Tartrate 50 MG TAB PO SCH (07:59)
[2020-11-21] MEDS: Ondansetron ODT 4 MG TAB PO PRN (08:00)
[2020-11-21 15:57] VITALS: BP 104/68; TEMP 97.9
== END 2020-11-21 18:22 | disposition home health service (06) | DRG 638 ==
LOC: BURMED 17:18
PROVIDERS: ADMIT Family Medicine; ATTEND Family Medicine
DX: E11.621 Type 2 diabetes mellitus with foot ulcer (principal); L02.612 Cutaneous abscess of left foot; L97.529 Non-pressure chronic ulcer of other part of left foot with unspecified severity; M19.90 Unspecified osteoarthritis, unspecified site; E78.5 Hyperlipidemia, unspecified; E11.628 Type 2 diabetes mellitus with other skin complications; I10 Essential (primary) hypertension; N40.0 Benign prostatic hyperplasia without lower urinary tract symptoms; Z89.412 Acquired absence of left great toe; Z98.890 Other specified postprocedural states; Z88.8 Allergy status to other drugs, medicaments and biological substances; Z91.013 Allergy to seafood; Z79.4 Long term (current) use of insulin; Z79.899 Other long term (current) drug therapy
CPT/HCPCS: 36415; 36416; 80053; 85025; 86140; 97602; J1815; Q0162

== ENCOUNTER 2020-11-24 19:08 | Emergency (ER) | payer MEDICARE, OTHER ==
[~2020-11-24 19:08] MED LIST: Iopamidol 370 76% 100 ML VIAL ONE
[2020-11-24 19:34] LABS: #Lymphocytes 0.6 thou/uL (1.20-3.40); #Monocytes 0.6 thou/uL (0.11-0.59); #Neutrophils 8.7 thou/uL (1.40-6.50); %Basophils 0.3 % (0.0-1.0); %Eosinophils 0.2 % (0.0-10.0); %Lymphocytes 6.3 % (21.0-51.0); %Neutrophils 87.2 % (42.0-75.0); Hemoglobin 12.8 g/dL (14.0-18.0); Mean Corpuscular HGB CONC 32.6 g/dL (32.0-36.0); Mean Corpuscular Hemoglobin 29.2 pg (27.0-31.0); Mean Corpuscular Volume 89.5 fL (78.0-98.0); Mean Platelet Volume 6.8 fL (7.4-10.4); Platelet Count 155 thou/uL (130-400); RBC Distribution Width 13.2 % (11.5-14.5); Red Blood Cell (RBC) Count 4.39 mill/uL (4.70-6.10)
[2020-11-24 19:52] LABS: ALT (SGPT) 19 U/L (8-55); AST (SGOT) 11 U/L (5-34); Albumin 3.7 g/dL (3.4-4.8); Alkaline Phosphatase 72 U/L (40-110); Anion Gap 18 mmol/L (10-20); BUN (Urea Nitrogen) 26 mg/dL (8.4-25.7); Bilirubin, Total 0.6 mg/dL (0.2-1.2); Calc. Creatinine Clearance 0 mL/min (70-130); Calcium 9.1 mg/dL (7.8-10.44); Carbon Dioxide 21 mmol/L (23-31); Chloride 102 mmol/L (98-107); Globulin 3.9 g/dL (2.4-3.5); Glucose 208 mg/dL (80-115); Potassium 5.5 mmol/L (3.5-5.1); Protein, Total 7.6 g/dL (5.8-8.1); Sodium 135 mmol/L (136-145)
[2020-11-24 21:51] LABS: Bilirubin Negative (Negative); Blood, Urine Moderate (Negative); Clarity Clear (Clear); Glucose, Urine (Dipstick) 100 mg/dL (Negative); Ketone, Urine 15 mg/dL (Negative); Leukocyte Negative (Negative); Nitrite Negative (Negative); Protein, Urine (Dipstick) 30 mg/dL (Neg-Trace); Specific Gravity, Urine 1.015 (1.005-1.030); Urobilinogen 0.2 mg/dL (Less than 2)
[2020-11-24 22:00] LABS: Bacteria/HPF None Seen HPF (None Seen); Mucous/LPF 1+ LPF (<2+); Squamous Epithelial None Seen HPF (0-3); Transitional Epithelial None Seen HPF (None Seen); WBC/HPF None Seen HPF (0-3); Yeast-Budding None Seen HPF (None Seen)
== END 2020-11-24 22:37 | disposition home or self-care (01) ==
LOC: BURERS 19:08
DX: N13.2 Hydronephrosis with renal and ureteral calculous obstruction (principal); E11.9 Type 2 diabetes mellitus without complications; E78.5 Hyperlipidemia, unspecified; I10 Essential (primary) hypertension; B19.20 Unspecified viral hepatitis C without hepatic coma; Z79.899 Other long term (current) drug therapy; Z79.84 Long term (current) use of oral hypoglycemic drugs
CPT/HCPCS: 74177; 80053; 81003; 81015; 83605; 83880; 84484; 85025; 93005; 94760; Q9967

== ENCOUNTER 2021-09-27 15:23 | Emergency (ER) | payer MEDICARE, OTHER ==
[2021-09-27 16:23] LABS: #Eosinphils 0.1 thou/uL (0.0-0.7); #Lymphocytes 1.2 thou/uL (1.20-3.40); #Monocytes 0.6 thou/uL (0.11-0.59); #Neutrophils 6.4 thou/uL (1.40-6.50); %Basophils 0.5 % (0.0-1.0); %Eosinophils 1.8 % (0.0-10.0); %Lymphocytes 14.5 % (21.0-51.0); %Neutrophils 76.3 % (42.0-75.0); Hemoglobin 11.8 g/dL (14.0-18.0); Mean Corpuscular HGB CONC 33.6 g/dL (32.0-36.0); Mean Corpuscular Hemoglobin 30.8 pg (27.0-31.0); Mean Corpuscular Volume 91.9 fL (78.0-98.0); Mean Platelet Volume 6.9 fL (7.4-10.4); Platelet Count 290 thou/uL (130-400); RBC Distribution Width 12.5 % (11.5-14.5); Red Blood Cell (RBC) Count 3.82 mill/uL (4.70-6.10); White Blood Cell (WBC) Count 8.4 thou/uL (4.8-10.8)
[2021-09-27 16:47] LABS: Anion Gap 16 mmol/L (10-20); BUN (Urea Nitrogen) 23 mg/dL (8.4-25.7); Calc. Creatinine Clearance 0 mL/min (70-130); Calcium 9.3 mg/dL (7.8-10.44); Carbon Dioxide 25 mmol/L (23-31); Chloride 104 mmol/L (98-107); Glucose 115 mg/dL (83-110); Magnesium 1.6 mg/dL (1.6-2.6); Potassium 5.4 mmol/L (3.5-5.1); Sodium 140 mmol/L (136-145)
== END 2021-09-27 17:46 | disposition home or self-care (01) ==
LOC: BURERS 15:23
DX: G25.81 Restless legs syndrome (principal); E86.0 Dehydration; E87.5 Hyperkalemia; E11.9 Type 2 diabetes mellitus without complications; I10 Essential (primary) hypertension; E78.5 Hyperlipidemia, unspecified; Z79.84 Long term (current) use of oral hypoglycemic drugs; Z79.899 Other long term (current) drug therapy
CPT/HCPCS: 36415; 71045; 80048; 83735; 83880; 84484; 85025; 93005